=== PATIENT | male | born 1945 | race Caucasian/White ===

== ENCOUNTER 2021-10-25 00:17 | Inpatient (IN) | payer MEDICARE, MEDICAID ==
[~2021-10-25] VITALS: Ht 182.9 cm; Wt 126.0 kg
[~2021-10-25 00:17] MED LIST: ADV50250 IH; ALB0.5UD IH; ALBU18HF2 IH; ALPR0.5T8 PO; ASPI-1264 PO; CLOP75TA34 PO; LANTUS SQ; LOP25T PO; METF500T PO; NICO-62 TD; NORCO10T PO; PITA2TAB2 PO; RES15C PO
[2021-10-25 02:00] VITALS: BP 102/80
[2021-10-25] MEDS ORDERED: BUPR1PAT TOP (02:21)
[2021-10-25] MEDS ORDERED: ZOLP5TAB8 PO (02:21)
[2021-10-25] MEDS ORDERED: BRIM5DRO2 LEFTEYE (02:21)
[2021-10-25] MEDS ORDERED: FLO0.4C PO (02:21)
[2021-10-25] MEDS ORDERED: CARV3.1289 PO (02:21)
[2021-10-25] MEDS ORDERED: FLUT1BLS4 PO (02:21)
[2021-10-25] MEDS ORDERED: ATOR40TA72 PO (02:21)
[2021-10-25] MEDS ORDERED: NITR0.4T51 SL (02:21)
[2021-10-25] MEDS ORDERED: SPIR25TA5 PO (02:21)
[2021-10-25] MEDS ORDERED: FURO-149 PO (02:21)
[2021-10-25] MEDS ORDERED: BIMA2.5D EACHEYE (02:21)
[2021-10-25] MEDS ORDERED: CLON-527 PO (03:02)
[2021-10-25] MEDS ORDERED: acetaminophen 325mg tablet PO PRN ×2 (03:25)
[2021-10-25] MEDS ORDERED: ondansetron/PF 4mg/2ml inj IV PRN (03:25)
[2021-10-25] MEDS ORDERED: diphenhydrAMINE 50 mg/ml inj IV PRN (03:25)
[2021-10-25] MEDS ORDERED: ondansetron 4mg rapidly disintigrating tab PO PRN (03:25)
[2021-10-25] MEDS ORDERED: diphenhydrAMINE 25mg capsule PO PRN (03:25)
[2021-10-25] MEDS ORDERED: HYDROcodone/acetaminophen 10/325mg tab PO PRN (03:25)
[2021-10-25] MEDS ORDERED: bisacodyl 10mg suppository rectal RC PRN (03:25)
[2021-10-25] MEDS ORDERED: mag hydrox/Alum hydrox/simeth 30ml oral suspension PO PRN (03:25)
[2021-10-25] MEDS ORDERED: magnesium hydroxide 30ml (MOM) UD suspension PO PRN (03:25)
[2021-10-25] MEDS ORDERED: morphine 2 MG/ML inj. syringe IV PRN ×2 (03:25)
[2021-10-25] MEDS ORDERED: acetaminophen 650mg rectal suppository RC PRN (03:25)
[2021-10-25] MEDS ORDERED: PATIROMER CALCIUM SORBITEX 8.4 GM POWD.PACK PO ONE (03:30)
[2021-10-25] MEDS ORDERED: dextrose 50%-water 50ml dispensing syringe IV ONE (03:30)
[2021-10-25] MEDS ORDERED: sodium bicarbonate (8.4%) inj. 1 MEQ/ML ML IV ONE (03:30)
[2021-10-25] MEDS ORDERED: sodium polystyrene sulfonate 15gm/60ml oral suspension PO ONE (03:30)
[2021-10-25] MEDS ORDERED: CALCIUM GLUC 1gm/50ml NACL,iso 50 ML IV PRN (03:30)
[2021-10-25] MEDS ORDERED: insulin regular, human 10 units/0.1 ml syringe IV ONE (03:30)
[2021-10-25] MEDS ORDERED: INSU100V12 SQ (03:37)
[2021-10-25] MEDS ORDERED: atropine 1 MG/1 ML vial IV PRN (04:00)
[2021-10-25] MEDS ORDERED: insulin Lispro (HumaLOG) vial - multi-dose SQ SCH (04:10)
[2021-10-25] MEDS ORDERED: glucagon, human recombinant 1mg kit SUBCUT PRN (04:10)
[2021-10-25] MEDS ORDERED: DEXTROSE 15 GM of carb/4 tabs (each vial/BOTTLE has 4 tablets) PO PRN ×2 (04:10)
[2021-10-25] MEDS ORDERED: MESSAGE TO PHARMACY PO ONE (04:10)
[2021-10-25] MEDS ORDERED: dextrose 50%-water 50ml dispensing syringe IV PRN ×2 (04:10)
[2021-10-25] MEDS: normal saline 1000ml 1,000 ML IV SCH ×2 (04:16→15:00)
[2021-10-25 04:30] LABS: APTT 25 SECONDS (22-32)
[2021-10-25 04:41] LABS: CREATINE KINASE 376 U/L (39-308); LIPASE 98 U/L (73-393); MAGNESIUM 2.7 MG/DL (1.5-2.4); PHOSPHORUS 6.4 MG/DL (2.3-4.5)
[2021-10-25 04:48] LABS: CLARITY,URINE CLEAR (Clear); COLOR,URINE YELLOW (Yellow); GLUCOSE, URINE NEGATIVE (Neg); KETONES,URINE NEGATIVE (Neg); LEUKOCYTE ESTERASE ,URINE NEGATIVE (Neg); NITRITES, URINE NEGATIVE (Neg); OCCULT BLOOD,URINE NEGATIVE (Neg); PROTEIN,URINE NEGATIVE (Neg); UROBILINOGEN,URINE 0.2 E.U/dL (0.2-1.0)
[2021-10-25 04:51] LABS: UA COLLECTION TYPE NON-SPECIFIED
[2021-10-25 04:58] LABS: URINE AMPHETAMINE SCREEN NEGATIVE (Neg); URINE BARBITUATE SCREEN NEGATIVE (Neg); URINE BENZODIAZEPINES SCREEN NEGATIVE (Neg); URINE CANNABINOID SCREEN NEGATIVE (Neg); URINE COCAINE SCREEN NEGATIVE (Neg); URINE METHADONE SCREEN NEGATIVE (Neg); URINE OPIATE SCREEN POSITIVE (Neg); URINE PHENCYCLIDINE SCREEN NEGATIVE (Neg)
[2021-10-25 05:05] LABS: HEMOGLOBIN A1C 7.5 % (4.5-6.2)
[2021-10-25 05:40] LABS: ALANINE AMINOTRANSFERASE 64 U/L (12-78); ALBUMIN 2.7 G/DL (3.4-5.0); ALBUMIN/GLOBULIN RATIO 0.6 (1.1-1.5); ALKALINE PHOSPHATASE 100 IU/L (46-116); ANION GAP 12 (8-16); ASPARTATE AMINO TRANSFERASE 42 U/L (10-37); BASOPHILS % (AUTO) 0.4 % (0-1); BILIRUBIN,TOTAL 0.2 MG/DL (0.1-1.0); BLOOD UREA NITROGEN 91 MG/DL (7-18); BUN/CREATININE RATIO 25.8 (5.4-32.0); CALCIUM 8.4 MG/DL (8.5-10.1); CHLORIDE 101 MMOL/L (99-107); CREATININE 3.53 MG/DL (0.60-1.10); EOSINOPHILS # (AUTO) 0.1 X10'3 (0-0.9); EOSINOPHILS % (AUTO) 0.6 % (0-6); GLUCOSE 71 MG/DL (70-104); HEMATOCRIT 34.4 % (42.0-52.0); HEMOGLOBIN 11.2 g/dl (14.0-17.9); LYMPHOCYTES % (AUTO) 11.5 % (21-51); MEAN CORPUSCULAR HEMOGLOBIN 27.7 PG (27.0-31.0); MEAN CORPUSCULAR HGB CONC 32.6 g/dL (33.0-36.5); MEAN CORPUSCULAR VOLUME 85.1 FL (78-98); MEAN PLATELET VOLUME 8.4 FL (7.4-10.4); MONOCYTES # (AUTO) 0.9 X10'3 (0-0.9); MONOCYTES % (AUTO) 10.9 % (2-12); NEUTROPHILS # (AUTO) 6.6 X10'3 (1.8-7.7); NEUTROPHILS % (AUTO) 76.6 % (42-75); PLATELET COUNT 246 X10'3 (140-440); RED BLOOD COUNT 4.05 X10'6 (4.70-6.10); SODIUM 133 MMOL/L (135-145); TOTAL CARBON DIOXIDE 20.5 MMOL/L (24-32); TOTAL PROTEIN 7.2 G/DL (6.4-8.2); WHITE BLOOD COUNT 8.6 X10'3 (4.5-11.0); eGFR 17 ML/MIN
[2021-10-25 06:00] VITALS: BP 107/76
[2021-10-25] MEDS: docusate sod 100mg capsule PO SCH ×2 (08:00→19:58)
--- NOTE | 2021-10-25 08:11 | NUR ---
Pt Shemar Tong Rm [id number] - Phamacy needs clarification about Sodium Bicarb. order. Could you please verify it and let me know please. Fior/ROBI [id number]
--- NOTE | 2021-10-25 09:35 | NUR ---
large liquid stool Addendum: 10/25/21 at 0935 by Dilma Long RN Amended: Links added.
[2021-10-25 10:00] VITALS: BP 110/72
[2021-10-25] MEDS: heparin, porcine 5000 units/ml vial SQ SCH ×2 (11:00→17:05)
[2021-10-25] MEDS: furosemide 10 MG/1 ML 10ml inj IV SCH (11:01)
--- NOTE | 2021-10-25 13:26 | NUR ---
DM consult: Pt w/ hx DM2, A1c 7.5 fair control and appropriate for age according to ADA guidelines. DM education placed in pt chart w/ RD contact information. Will continue to follow for nutrition needs this admit. Addendum: 10/25/21 at 1326 by Ana María Gilbert Intern RD Amended: Links added. Addendum: 10/25/21 at [address] I have reviewed assessment by general internal medicine doctor
[2021-10-25 14:00] VITALS: BP 121/58
--- NOTE | 2021-10-25 14:08 | NUR ---
PAGER ID: [phone] MESSAGE: [phone] GIBSON VELÁSQUEZ LEFT ANKLE IS PAINFUL, DO YOU WANT AN XRAY? THAT IS THE SIDE HE FELL ON. HARSH [id number]
[2021-10-25] MEDS: HYDROcodone/acetaminophen 5mg/325mg tablet PO PRN ×2 (14:26→19:58)
--- NOTE | 2021-10-25 14:26 | NUR ---
PRESSURE ULCER EDUCATION: DEFINITION: A pressure ulcer is an area of skin that breaks down when you stay in one position too long. The constant pressure against the skin reduces the blood flow to that area and the affected tissue dies. CAUSES: "Being bedridden or in a wheelchair "Fragile skin "Having a chronic condition, such as diabetes or vascular disease "Inability to move certain parts of your body without assistance "Older age "Incontinence of urine or stool SYMPTOMS: "A reddened area that DOES NOT turn white when pressed on - this can be the beginning of a pressure ulcer "A blister, deep sore or a crater - these can be advanced pressure ulcers FIRST AID: "Relieve the pressure on this area "Keep the area clean and dry "Call your primary doctor if you see any of the above symptoms "DO NOT massage the area "DO NOT use a donut shaped or ring shaped pillow- these actually interfere with the blood flow and cause complications PREVENTION: "Check for pressure ulcers everyday "Change position at least every two hours to relieve pressure "Use items that help relieve pressure- pillows, sheepskin, foam padding, and powders. "Keep skin clean and dry "Eat healthy well balanced meals "Exercise daily IF YOU SEE ANY OF THESE SYMPTOMS WHILE IN THE HOSPITAL - TELL YOUR NURSE IMMEDIATELY. IF YOU SEE ANY OF THESE SYMPTOMS WHILE AT HOME OR HAVE ANY QUESTIONS OR CONCERNS ABOUT PRESSURE ULCERS - CALL YOUR PRIMARY DOCTOR IMMEDIATELY. Addendum: 10/25/21 at 1426 by Linda Velazquez RN Amended: Links added.
[2021-10-25 18:00] VITALS: BP 153/45
[2021-10-25] MEDS ORDERED: temazepam 15mg capsule PO PRN (21:00)
[2021-10-25] MEDS ORDERED: insulin glargine (Lantus) pen - multi-dose SQ SCH (21:00)
[2021-10-25 22:00] VITALS: BP 138/44
[2021-10-26] MEDS: heparin, porcine 5000 units/ml vial SQ SCH ×2 (00:23→08:49)
[2021-10-26] MEDS: normal saline 1000ml 1,000 ML IV SCH ×2 (05:31→09:25)
--- NOTE | 2021-10-26 05:43 | NUR ---
patient increasingly confused through the night. awoke at 0500 only oriented to self wanting to leave. pt pulling at gown and all lines. noted PIV was out of his arm, heart monitor and spo2 monitor were disconnected. very agitated but dressed patient in clean gown and given cup of coffee. attempted to reorient patient but didn't seem to help much. at this time patient laying in bed drinking coffee but refusing to be connected to any monitors or have a new PIV placed. bed alarm is on, will continue to closely monitor patient.
[2021-10-26 06:27] LABS: BASOPHILS % (AUTO) 0.5 % (0-1); EOSINOPHILS # (AUTO) 0.2 X10'3 (0-0.9); EOSINOPHILS % (AUTO) 2.6 % (0-6); HEMATOCRIT 34.3 % (42.0-52.0); LYMPHOCYTES # (AUTO) 0.6 X10'3 (1.1-4.8); MEAN CORPUSCULAR HEMOGLOBIN 27.3 PG (27.0-31.0); MEAN CORPUSCULAR VOLUME 85.5 FL (78-98); MEAN PLATELET VOLUME 8.1 FL (7.4-10.4); MONOCYTES # (AUTO) 0.8 X10'3 (0-0.9); MONOCYTES % (AUTO) 11.7 % (2-12); NEUTROPHILS # (AUTO) 5.3 X10'3 (1.8-7.7); NEUTROPHILS % (AUTO) 76.2 % (42-75); PLATELET COUNT 252 X10'3 (140-440); RED BLOOD COUNT 4.01 X10'6 (4.70-6.10); RED CELL DISTRIBUTION WIDTH 17.7 % (11.5-14.5)
[2021-10-26 06:57] LABS: ALANINE AMINOTRANSFERASE 51 U/L (12-78); ALBUMIN 2.7 G/DL (3.4-5.0); ALBUMIN/GLOBULIN RATIO 0.6 (1.1-1.5); ALKALINE PHOSPHATASE 88 IU/L (46-116); ANION GAP 11 (8-16); ASPARTATE AMINO TRANSFERASE 31 U/L (10-37); BILIRUBIN,TOTAL 0.4 MG/DL (0.1-1.0); BLOOD UREA NITROGEN 78 MG/DL (7-18); BUN/CREATININE RATIO 31.7 (5.4-32.0); CALCIUM 7.8 MG/DL (8.5-10.1); CHLORIDE 102 MMOL/L (99-107); CHOL/HDL RATIO 2.3 (0.00-4.99); CHOLESTEROL 86 MG/DL (0-200); CREATININE 2.46 MG/DL (0.60-1.10); GLUCOSE 148 MG/DL (70-104); HDL CHOLESTEROL 37 MG/DL (35-60); LDL CHOLESTEROL 38 MG/DL (50-100); POTASSIUM 4.7 MMOL/L (3.5-5.1); SODIUM 135 MMOL/L (135-145); TOTAL CARBON DIOXIDE 22.4 MMOL/L (24-32); TOTAL PROTEIN 7.4 G/DL (6.4-8.2); TRIGLYCERIDES 109 MG/DL (20-135); eGFR 26 ML/MIN
[2021-10-26] MEDS: furosemide 10 MG/1 ML 10ml inj IV SCH (08:00)
--- NOTE | 2021-10-26 08:47 | NUR ---
PAGE SENT PAGER ID: [phone] MESSAGE: [phone], GIBSON VELÁSQUEZ, PT DOESN'T HAVE IV ACCESS AND IS REFUSING A NEW ONE. LASIX TO PO? PT IS VERY ANXIOUS TO LEAVE. THANK YOU, BALWINDER Trevizo [id number]
[2021-10-26] MEDS: docusate sod 100mg capsule PO SCH (08:48)
--- NOTE | 2021-10-26 09:50 | NUR ---
PT PULLED OUT PIV AND REFUSED TO HAVE A NEW PIV PLACED. PT ALSO REFUSED IV MEDS.
--- NOTE | 2021-10-26 10:31 | NUR ---
PT CONFUSED AND AGITATED AT BEGINNING OF SHIFT. PT WAS ORIENTED TO TIME, AND SETTLED DOWN. INSISTED IN SITTING IN RECLINER AT . PT CALMED DOWN AND WAS AOX4 WITHIN THE HOUR. PT PULLED PIV PREVIOUSLY NOTED. Addendum: 10/26/21 at 1044 by Amparo Contreras RN PT REFUSES VS.
--- NOTE | 2021-10-26 12:15 | NUR ---
RISKS AND BENEFITS EXPLAINED TO PT CONCERNING LEAVING AMA. PT ENCOURAGED TO STAY AND CONTINUE WITH TREATMENT, AND HE WAS INFORMED THAT HE WOULD HAVE TO FIND HIS OWN WAY HOME. PT WAS DETERMINED TO LEAVE AND A FRIEND CAME AND DROVE HIM HOME.
--- NOTE | 2021-10-26 12:16 | NUR ---
sent page to hospitalist letting them know pt went ama
== END 2021-10-26 12:05 | disposition left against medical advice (07) | DRG 682 ==
LOC: MED 3N 00:17
PROVIDERS: ADMIT Family Medicine; ATTEND Internal Medicine
DX: N17.0 Acute kidney failure with tubular necrosis (principal); I50.33 Acute on chronic diastolic (congestive) heart failure; M62.82 Rhabdomyolysis; E87.1 Hypo-osmolality and hyponatremia; L03.115 Cellulitis of right lower limb; S81.012A Laceration without foreign body, left knee, initial encounter; I48.91 Unspecified atrial fibrillation; E87.5 Hyperkalemia; E11.22 Type 2 diabetes mellitus with diabetic chronic kidney disease; E11.65 Type 2 diabetes mellitus with hyperglycemia; E78.5 Hyperlipidemia, unspecified; K57.90 Diverticulosis of intestine, part unspecified, without perforation or abscess without bleeding; R29.6 Repeated falls; S96.912A Strain of unspecified muscle and tendon at ankle and foot level, left foot, initial encounter; X58.XXXA Exposure to other specified factors, initial encounter; I25.10 Atherosclerotic heart disease of native coronary artery without angina pectoris; R00.1 Bradycardia, unspecified; L30.9 Dermatitis, unspecified; S80.821A Blister (nonthermal), right lower leg, initial encounter; W18.39XA Other fall on same level, initial encounter; T50.2X5A Adverse effect of carbonic-anhydrase inhibitors, benzothiadiazides and other diuretics, initial encounter; N18.9 Chronic kidney disease, unspecified; N40.0 Benign prostatic hyperplasia without lower urinary tract symptoms; Z53.29 Procedure and treatment not carried out because of patient's decision for other reasons; Z79.02 Long term (current) use of antithrombotics/antiplatelets; Z79.82 Long term (current) use of aspirin; Z87.891 Personal history of nicotine dependence; Z91.81 History of falling; Z95.5 Presence of coronary angioplasty implant and graft; Y93.89 Activity, other specified; Y99.8 Other external cause status; Y92.098 Other place in other non-institutional residence as the place of occurrence of the external cause; Z88.8 Allergy status to other drugs, medicaments and biological substances; Z79.899 Other long term (current) drug therapy
CPT/HCPCS: 36415; 73600; 80053; 80061; 80305; 81003; 82550; 82948; 83036; 83605; 83690; 83735; 83880; 84100; 84132; 84443; 84484; 85025; 85610; 85730; 87081; 93005; 93306; G0378; J1644; J1815; J1940; J3490; J7030